=== PATIENT | male | born 1970 | race African-American/Black ===

== ENCOUNTER 2018-12-08 11:29 | Inpatient (IN) ==
[2018-12-08] MEDS ORDERED: PIPERACILLIN/TAZOBACTAM 3,375 MG in SODIUM CHLORIDE 0.9% 100 ML IV STA (16:48)
[2018-12-08] MEDS ORDERED: SODIUM CHLORIDE 0.9% 1,000 ML IV STA (16:48)
[2018-12-08 17:18] LABS: Basophils # 0.1 10*3/uL (0.0-0.2); Basophils % 0.4 % (0.0-0.8); Eosinophils % 0.1 % (0.00-10.9); Hematocrit 41.7 VOL% (42.0-52.0); Hemoglobin 13.6 GM/DL (14.0-18.0); Immature Granulocytes % 0.9 %; Immature Granulocytes Absolute 0.16 #; Lymphocytes # 1.7 10*3/uL (1.4-4.0); Lymphocytes % 9.4 % (21.2-54.2); Mean Corpuscular HGB Conc 32.6 GM/DL (32-36); Mean Corpuscular Volume 90.5 FL (87-102); Mean Platelet Volume 10.3 FL (9.6-12.0); Monocytes % 6.3 % (1.7-12.7); Neutrophils % 82.9 % (38.7-73.9); Platelet Count 435 T/CUMM (130-400); Red Blood Count 4.61 MC/CUMM (3.8-5.5); Red Cell Distribution Width 11.9 % (9.3-17.3); White Blood Count 18.2 T/CUMM (4-12)
[2018-12-08 17:27] LABS: INR 1.1; PT Patient Result 11.5 SECS (9.6-12.2); Partial Thromboplastin Time 29.3 SECS (20.8-36.0)
[2018-12-08 17:49] LABS: Alanine Aminotransferase 33 U/L (16-61); Albumin 2.5 G/DL (3.4-5.0); Alkaline Phosphatase 155 U/L (45-117); Aspartate Amino Transferase 14 U/L (0-37); Bilirubin,Total < 0.39 MG/DL (0.2-1.0); Blood Urea Nitrogen 9 MG/DL (7-18); Calcium 9.7 MG/DL (8.5-10.1); Estimated Glom Filtration Rate 140 ML/MIN; Glucose 271 MG/DL (74-106); Osmolality,Calculated 274.4 MOS/KG (273-304); Total Protein 9.7 G/DL (6.4-8.3)
[2018-12-08 18:21] LABS: Sedimentation Rate-Westergren 35 MM/HR (0-15)
[2018-12-08] MEDS ORDERED: DEXTROSE 50% 25 GM/50 ML VIAL IV PRN ×2 (18:53→19:16)
[2018-12-08] MEDS ORDERED: GLUCAGON 1 MG VIAL IM PRN ×2 (18:53→19:16)
[2018-12-08] MEDS ORDERED: ONDANSETRON 4 MG/2 ML VIAL IV PRN ×2 (18:53→19:16)
[2018-12-08] MEDS ORDERED: MORPHINE 4 MG/1 ML VIAL IV PRN (19:00)
[2018-12-08] MEDS ORDERED: HYDROmorphone 2 MG/1 ML VIAL IV PRN (19:16)
[2018-12-08] MEDS ORDERED: MAGNESIUM HYDROXIDE SUSP 30 ML UDCUP PO PRN (19:16)
[2018-12-08] MEDS ORDERED: SODIUM CHLORIDE 0.9% 1,000 ML IV SCH (19:16)
[2018-12-08] MEDS: INSULIN LISPRO 100 UNIT/ML SUBCUT SCH (20:46)
[2018-12-08] MEDS: FAMOTIDINE 20 MG/2 ML VIAL IV SCH (20:46)
[2018-12-08] MEDS: SODIUM CHLORIDE 0.9% 1,000 ML IV SCH (21:48)
[2018-12-08] MEDS: VANCOMYCIN INJ 1,500 MG in SODIUM CHLORIDE 0.9% 500 ML IV SCH (21:49)
[2018-12-09 04:38] LABS: Basophils % 0.2 % (0.0-0.8); Eosinophils % 0.1 % (0.00-10.9); Hematocrit 39.7 VOL% (42.0-52.0); Hemoglobin 12.8 GM/DL (14.0-18.0); Immature Granulocytes % 0.6 %; Immature Granulocytes Absolute 0.12 #; Lymphocytes # 2.1 10*3/uL (1.4-4.0); Lymphocytes % 11.1 % (21.2-54.2); Mean Corpuscular HGB Conc 32.2 GM/DL (32-36); Mean Corpuscular Volume 90.4 FL (87-102); Mean Platelet Volume 10.6 FL (9.6-12.0); Monocytes % 7.4 % (1.7-12.7); Neutrophils % 80.6 % (38.7-73.9); Platelet Count 419 T/CUMM (130-400); Red Blood Count 4.39 MC/CUMM (3.8-5.5); White Blood Count 18.8 T/CUMM (4-12)
[2018-12-09 05:19] LABS: Calcium 9.1 MG/DL (8.5-10.1); Osmolality,Calculated 266.7 MOS/KG (273-304); Risk Ratio 3.58; VLDL CHOLESTEROL 13.4 MG/DL
[2018-12-09] MEDS: INSULIN LISPRO 100 UNIT/ML SUBCUT SCH ×4 (07:33→20:27)
[2018-12-09] MEDS: FAMOTIDINE 20 MG/2 ML VIAL IV SCH ×2 (08:12→20:29)
[2018-12-09] MEDS: SODIUM CHLORIDE 0.9% 1,000 ML IV SCH ×3 (08:13→20:33)
[2018-12-09] MEDS ORDERED: PANTOPRAZOLE 40 MG VIAL IV SCH (09:00)
[2018-12-09] MEDS ORDERED: DEXAMETHASONE 4 MG/1 ML VIAL ONE (09:46)
[2018-12-09] MEDS ORDERED: fentaNYL 100 MCG/2 ML VIAL ONE ×2 (09:46→11:56)
[2018-12-09] MEDS ORDERED: EPINEPHrine 1 MG/ML VIAL ONE (09:46)
[2018-12-09] MEDS ORDERED: BUPIVACAINE 0.5% 50 ML VIAL ONE (09:46)
[2018-12-09] MEDS ORDERED: MIDAZOLAM 2 MG/2 ML VIAL ONE (09:46)
[2018-12-09] MEDS ORDERED: LIDOCAINE 1% 5 ML VIAL ONE (09:46)
[2018-12-09] MEDS: VANCOMYCIN INJ 1,500 MG in SODIUM CHLORIDE 0.9% 500 ML IV SCH ×2 (10:10→21:35)
[2018-12-09] MEDS ORDERED: NEOMYCIN/POLYMYXIN/BACITRACIN OINT 28.4 GM TUBE TOP ONE (11:37)
[2018-12-09] MEDS ORDERED: KETOROLAC 30 MG/1 ML VIAL IV PRN (11:39)
[2018-12-09] MEDS ORDERED: diphenhydrAMINE CAP 25 MG CAPSULE PO PRN (11:39)
[2018-12-09] MEDS ORDERED: propofoL 200 MG/20 ML VIAL IV ONE (11:56)
[2018-12-09] MEDS ORDERED: LACTATED RINGERS 1,000 ML IV ONE (11:56)
[2018-12-09] MEDS ORDERED: SEVOFLURANE 1 UNIT/15 MINUTE INH ONE (11:56)
[2018-12-09] MEDS: lisinopriL 20 MG TABLET PO SCH (17:20)
[2018-12-10] MEDS: FONDAPARINUX 2.5 MG/0.5 ML SYRINGE SUBCUT SCH (05:13)
[2018-12-10 05:22] LABS: Basophils # 0.1 10*3/uL (0.0-0.2); Basophils % 0.4 % (0.0-0.8); Eosinophils % 0.2 % (0.00-10.9); Hemoglobin 10.8 GM/DL (14.0-18.0); Immature Granulocytes % 1.3 %; Immature Granulocytes Absolute 0.27 #; Lymphocytes # 2.7 10*3/uL (1.4-4.0); Lymphocytes % 13.5 % (21.2-54.2); Mean Corpuscular HGB Conc 31.8 GM/DL (32-36); Mean Corpuscular Volume 91.4 FL (87-102); Mean Platelet Volume 10.4 FL (9.6-12.0); Monocytes % 5.6 % (1.7-12.7); Platelet Count 379 T/CUMM (130-400); Red Blood Count 3.72 MC/CUMM (3.8-5.5); White Blood Count 20.1 T/CUMM (4-12)
[2018-12-10 05:47] LABS: Hypochromasia 1+
[2018-12-10 05:48] LABS: Platelet Estimate Adequate
[2018-12-10 06:10] LABS: Calcium 8.8 MG/DL (8.5-10.1); Osmolality,Calculated 278.2 MOS/KG (273-304)
[2018-12-10] MEDS: lisinopriL 20 MG TABLET PO SCH (08:32)
[2018-12-10] MEDS: metFORMIN 500 MG TABLET PO SCH ×2 (08:32→21:22)
[2018-12-10] MEDS: INSULIN LISPRO 100 UNIT/ML SUBCUT SCH ×4 (08:32→21:22)
[2018-12-10] MEDS: FAMOTIDINE 20 MG/2 ML VIAL IV SCH ×2 (08:32→21:21)
[2018-12-10] MEDS: VANCOMYCIN INJ 1,500 MG in SODIUM CHLORIDE 0.9% 500 ML IV SCH (09:32)
[2018-12-10] MEDS: NAFCILLIN 2,000 MG in SODIUM CHLORIDE 0.9% 100 ML IV SCH ×3 (13:06→21:21)
[2018-12-10] MEDS ORDERED: glyBURIDE 5 MG TABLET PO SCH (17:00)
[2018-12-10] MEDS: glyBURIDE 5 MG TABLET PO SCH (17:22)
[2018-12-10] MEDS: SODIUM CHLORIDE 0.9% 1,000 ML IV SCH (23:33)
[2018-12-11] MEDS: NAFCILLIN 2,000 MG in SODIUM CHLORIDE 0.9% 100 ML IV SCH ×6 (00:10→20:54)
[2018-12-11] MEDS: FONDAPARINUX 2.5 MG/0.5 ML SYRINGE SUBCUT SCH (04:58)
[2018-12-11 05:14] LABS: Basophils % 0.2 % (0.0-0.8); Eosinophils # 0.2 10*3/uL (0.0-0.87); Eosinophils % 1.2 % (0.00-10.9); Hematocrit 33.1 VOL% (42.0-52.0); Hemoglobin 10.5 GM/DL (14.0-18.0); Immature Granulocytes % 1.2 %; Immature Granulocytes Absolute 0.18 #; Lymphocytes # 3.3 10*3/uL (1.4-4.0); Mean Corpuscular HGB Conc 31.7 GM/DL (32-36); Mean Corpuscular Volume 91.9 FL (87-102); Mean Platelet Volume 10.6 FL (9.6-12.0); Monocytes % 5.5 % (1.7-12.7); Neutrophils % 70.9 % (38.7-73.9); Platelet Count 394 T/CUMM (130-400); Red Cell Distribution Width 12.2 % (9.3-17.3); White Blood Count 15.5 T/CUMM (4-12)
[2018-12-11 05:31] LABS: Calcium 8.9 MG/DL (8.5-10.1); Osmolality,Calculated 275.8 MOS/KG (273-304)
[2018-12-11] MEDS ORDERED: EPINEPHrine 1 MG/ML VIAL ONE (07:28)
[2018-12-11] MEDS ORDERED: ROPIVACAINE 0.5% 30 ML VIAL ONE (07:28)
[2018-12-11] MEDS ORDERED: DEXAMETHASONE 4 MG/1 ML VIAL ONE ×2 (07:29→10:07)
[2018-12-11] MEDS ORDERED: NEOMYCIN/POLYMYXIN/BACITRACIN OINT 28.4 GM TUBE TOP ONE (07:41)
[2018-12-11] MEDS: INSULIN LISPRO 100 UNIT/ML SUBCUT SCH ×4 (08:01→20:52)
[2018-12-11] MEDS: lisinopriL 10 MG TABLET PO SCH (08:08)
[2018-12-11] MEDS ORDERED: SEVOFLURANE 1 UNIT/15 MINUTE INH ONE (10:06)
[2018-12-11] MEDS ORDERED: fentaNYL 100 MCG/2 ML VIAL ONE (10:06)
[2018-12-11] MEDS ORDERED: propofoL 200 MG/20 ML VIAL IV ONE (10:06)
[2018-12-11] MEDS ORDERED: PHENYLEPHRINE 1 MG/10 ML SYRINGE IV ONE (10:07)
[2018-12-11] MEDS ORDERED: MIDAZOLAM 2 MG/2 ML VIAL ONE (10:07)
[2018-12-11] MEDS ORDERED: KETOROLAC 30 MG/1 ML VIAL ONE (10:07)
[2018-12-11] MEDS ORDERED: ONDANSETRON 4 MG/2 ML VIAL ONE (10:07)
[2018-12-11] MEDS ORDERED: LACTATED RINGERS 1,000 ML IV ONE (10:07)
[2018-12-11] MEDS: metFORMIN 500 MG TABLET PO SCH ×2 (13:24→20:52)
[2018-12-11] MEDS: glyBURIDE 5 MG TABLET PO SCH ×2 (13:25→17:38)
[2018-12-11] MEDS: FAMOTIDINE 20 MG/2 ML VIAL IV SCH ×2 (13:26→20:52)
[2018-12-12] MEDS: NAFCILLIN 2,000 MG in SODIUM CHLORIDE 0.9% 100 ML IV SCH ×6 (00:02→20:39)
[2018-12-12] MEDS: FONDAPARINUX 2.5 MG/0.5 ML SYRINGE SUBCUT SCH (04:54)
[2018-12-12 05:05] LABS: Basophils # 0.1 10*3/uL (0.0-0.2); Basophils % 0.3 % (0.0-0.8); Eosinophils # 0.1 10*3/uL (0.0-0.87); Eosinophils % 0.8 % (0.00-10.9); Hematocrit 34.1 VOL% (42.0-52.0); Hemoglobin 10.8 GM/DL (14.0-18.0); Immature Granulocytes % 1.1 %; Immature Granulocytes Absolute 0.17 #; Lymphocytes # 3.5 10*3/uL (1.4-4.0); Lymphocytes % 22.7 % (21.2-54.2); Mean Corpuscular HGB Conc 31.7 GM/DL (32-36); Mean Corpuscular Volume 91.9 FL (87-102); Mean Platelet Volume 10.2 FL (9.6-12.0); Monocytes % 4.1 % (1.7-12.7); Platelet Count 403 T/CUMM (130-400); Red Blood Count 3.71 MC/CUMM (3.8-5.5); Red Cell Distribution Width 12.1 % (9.3-17.3); White Blood Count 15.3 T/CUMM (4-12)
[2018-12-12] MEDS: glyBURIDE 5 MG TABLET PO SCH ×2 (08:20→16:57)
[2018-12-12] MEDS: lisinopriL 10 MG TABLET PO SCH (08:20)
[2018-12-12] MEDS: metFORMIN 500 MG TABLET PO SCH ×2 (08:20→20:39)
[2018-12-12] MEDS: INSULIN LISPRO 100 UNIT/ML SUBCUT SCH ×4 (08:20→20:39)
[2018-12-12] MEDS: FAMOTIDINE 20 MG/2 ML VIAL IV SCH ×2 (09:26→20:39)
[2018-12-13] MEDS: NAFCILLIN 2,000 MG in SODIUM CHLORIDE 0.9% 100 ML IV SCH ×8 (00:53→23:39)
[2018-12-13] MEDS: FONDAPARINUX 2.5 MG/0.5 ML SYRINGE SUBCUT SCH (06:07)
[2018-12-13 08:38] LABS: Basophils % 0.3 % (0.0-0.8); Eosinophils # 0.2 10*3/uL (0.0-0.87); Eosinophils % 1.3 % (0.00-10.9); Hemoglobin 11.2 GM/DL (14.0-18.0); Immature Granulocytes % 1.2 %; Immature Granulocytes Absolute 0.14 #; Lymphocytes # 3.2 10*3/uL (1.4-4.0); Lymphocytes % 26.5 % (21.2-54.2); Mean Corpuscular HGB Conc 31.1 GM/DL (32-36); Mean Corpuscular Volume 93.3 FL (87-102); Mean Platelet Volume 9.9 FL (9.6-12.0); Monocytes % 5.3 % (1.7-12.7); Neutrophils % 65.4 % (38.7-73.9); Platelet Count 436 T/CUMM (130-400); Red Blood Count 3.86 MC/CUMM (3.8-5.5); Red Cell Distribution Width 12.3 % (9.3-17.3)
[2018-12-13] MEDS: INSULIN LISPRO 100 UNIT/ML SUBCUT SCH ×5 (09:01→20:24)
[2018-12-13] MEDS: glyBURIDE 5 MG TABLET PO SCH (09:02)
[2018-12-13] MEDS: lisinopriL 10 MG TABLET PO SCH (09:03)
[2018-12-13] MEDS: metFORMIN 500 MG TABLET PO SCH (09:03)
[2018-12-13] MEDS: FAMOTIDINE 20 MG/2 ML VIAL IV SCH ×2 (09:03→20:24)
[2018-12-13 09:06] LABS: Calcium 8.5 MG/DL (8.5-10.1); Osmolality,Calculated 277.7 MOS/KG (273-304)
[2018-12-13] MEDS: MORPHINE 4 MG/1 ML VIAL IV PRN ×2 (10:41→23:39)
[2018-12-13] MEDS: INSULIN GLARGINE 100 UNIT/ML SUBCUT SCH (14:34)
[2018-12-14] MEDS: NAFCILLIN 2,000 MG in SODIUM CHLORIDE 0.9% 100 ML IV SCH ×5 (04:42→20:35)
[2018-12-14] MEDS: FONDAPARINUX 2.5 MG/0.5 ML SYRINGE SUBCUT SCH (04:43)
[2018-12-14 05:34] LABS: Basophils % 0.3 % (0.0-0.8); Eosinophils # 0.2 10*3/uL (0.0-0.87); Eosinophils % 1.5 % (0.00-10.9); Hematocrit 34.7 VOL% (42.0-52.0); Hemoglobin 10.8 GM/DL (14.0-18.0); Immature Granulocytes % 1.3 %; Immature Granulocytes Absolute 0.16 #; Lymphocytes # 2.9 10*3/uL (1.4-4.0); Lymphocytes % 24.3 % (21.2-54.2); Mean Corpuscular HGB Conc 31.1 GM/DL (32-36); Mean Corpuscular Volume 92.3 FL (87-102); Mean Platelet Volume 10.3 FL (9.6-12.0); Monocytes % 5.2 % (1.7-12.7); Neutrophils % 67.4 % (38.7-73.9); Platelet Count 450 T/CUMM (130-400); Red Blood Count 3.76 MC/CUMM (3.8-5.5); Red Cell Distribution Width 12.4 % (9.3-17.3); White Blood Count 12.1 T/CUMM (4-12)
[2018-12-14 06:10] LABS: Albumin 2.1 G/DL (3.4-5.0); Bilirubin,Total 0.4 MG/DL (0.2-1.0); Calcium 8.7 MG/DL (8.5-10.1); Osmolality,Calculated 280.5 MOS/KG (273-304); Total Protein 7.3 G/DL (6.4-8.3)
[2018-12-14] MEDS: INSULIN LISPRO 100 UNIT/ML SUBCUT SCH ×7 (07:58→20:36)
[2018-12-14] MEDS: MORPHINE 4 MG/1 ML VIAL IV PRN (08:54)
[2018-12-14] MEDS: lisinopriL 10 MG TABLET PO SCH (08:56)
[2018-12-14] MEDS: FAMOTIDINE 20 MG/2 ML VIAL IV SCH ×2 (08:57→20:36)
[2018-12-14] MEDS: INSULIN GLARGINE 100 UNIT/ML SUBCUT SCH (08:59)
[2018-12-15] MEDS: NAFCILLIN 2,000 MG in SODIUM CHLORIDE 0.9% 100 ML IV SCH ×4 (00:01→12:31)
[2018-12-15] MEDS: FONDAPARINUX 2.5 MG/0.5 ML SYRINGE SUBCUT SCH (06:04)
[2018-12-15] MEDS: FAMOTIDINE 20 MG/2 ML VIAL IV SCH (08:49)
[2018-12-15] MEDS: lisinopriL 10 MG TABLET PO SCH (08:50)
[2018-12-15] MEDS: INSULIN GLARGINE 100 UNIT/ML SUBCUT SCH (08:50)
[2018-12-15] MEDS: INSULIN LISPRO 100 UNIT/ML SUBCUT SCH ×4 (08:50→12:33)
[2018-12-15 08:51] LABS: Basophils % 0.4 % (0.0-0.8); Eosinophils # 0.2 10*3/uL (0.0-0.87); Eosinophils % 1.9 % (0.00-10.9); Hematocrit 36.3 VOL% (42.0-52.0); Hemoglobin 11.5 GM/DL (14.0-18.0); Immature Granulocytes % 1.3 %; Immature Granulocytes Absolute 0.13 #; Lymphocytes # 2.5 10*3/uL (1.4-4.0); Lymphocytes % 24.9 % (21.2-54.2); Mean Corpuscular HGB Conc 31.7 GM/DL (32-36); Mean Corpuscular Volume 92.8 FL (87-102); Mean Platelet Volume 9.9 FL (9.6-12.0); Monocytes % 5.4 % (1.7-12.7); Neutrophils % 66.1 % (38.7-73.9); Platelet Count 441 T/CUMM (130-400); Red Blood Count 3.91 MC/CUMM (3.8-5.5); Red Cell Distribution Width 12.5 % (9.3-17.3); White Blood Count 10.1 T/CUMM (4-12)
[2018-12-15 09:16] LABS: Calcium 8.9 MG/DL (8.5-10.1); Osmolality,Calculated 279.5 MOS/KG (273-304)
[2018-12-15 11:44] VITALS: BP 140/80
== END 2018-12-15 16:38 | disposition home or self-care (01) | DRG 464 ==
LOC: N.EDINP 11:29 → N.ED 11:29 → N.3E 18:55
PROVIDERS: ADMIT Orthopaedic Surgery; ATTEND Orthopaedic Surgery